=== PATIENT | male | born 1980 | race Two or more races ===

== ENCOUNTER → 2020-03-03 | Outpatient (CLI) | payer BC ==
[2015-09-29 17:30] VITALS: BP 137/75
[2020-03-03 14:51] LABS: BASO # 0.1 x10^3/uL (0.0-0.2); BASO % 1 % (0-3); EOS # 0.1 x10^3/uL (0.0-0.7); EOS % 1 % (0-3); HEMATOCRIT 41.1 % (39.0-53.0); HEMOGLOBIN 14.5 g/dL (13.0-17.5); LYMPH % 10 % (24-48); MEAN CORPUSCULAR HEMOGLOBIN 29 pg (25-35); MEAN CORPUSCULAR HGB CONC 35 g/dL (31-37); MEAN CORPUSCULAR VOLUME 83 fL (79-100); MONO # 1.3 x10^3/uL (0.0-1.1); MONO % 12 % (0-9); NEUT # 7.6 x10^3/uL (1.8-7.7); NEUT % 75 % (31-73); PLATELET COUNT 188 x10^3/uL (140-400); RED BLOOD COUNT 4.96 x10^6/uL (4.30-5.70); RED CELL DISTRIBUTION WIDTH 12.9 % (11.5-14.5); WHITE BLOOD COUNT 10.1 x10^3/uL (4.0-11.0)
[2020-03-03 15:20] LABS: ALBUMIN 3.3 g/dL (3.4-5.0); ALBUMIN/GLOBULIN RATIO 0.7 (1.0-1.7); C-REACTIVE PROTEIN 212.8 mg/L (0-3.3); CALCIUM 9.3 mg/dL (8.5-10.1); GFR 84.1; POTASSIUM 3.9 mmol/L (3.5-5.1); TOTAL BILIRUBIN 0.9 mg/dL (0.2-1.0); TOTAL PROTEIN 8.3 g/dL (6.4-8.2)
--- NOTE | 2020-03-03 16:42 | RAD ---
Chest radiograph 03/03/2020 2:52 PM INDICATION: Covid 19, cough fever and chill COMPARISON: None available TECHNIQUE: Frontal and lateral views of the chest are provided. FINDINGS: The cardiomediastinal silhouette is within normal limits. There are no pleural effusions. There is no pulmonary vascular congestion. There is no pneumothorax. Linear opacities noted in the right midlung and at the left lung base may represent interstitial pneumonitis versus subsegmental atelectasis or scarring. No significant osseous abnormality is identified. IMPRESSION: Linear opacities noted in the right midlung and at the left lung base may represent interstitial pneumonitis versus subsegmental atelectasis or scarring. Electronically signed by: Riya Sinclair MD (03/03/2020 4:39 PM) ANABEL
== END | disposition home or self-care (01) ==
LOC: LAB 14:07
PROVIDERS: ATTEND Physician Assistant Medical
DX: R50.9 Fever, unspecified (principal)
CPT/HCPCS: 36415; 71046; 80053; 85025; 86140

== ENCOUNTER → 2021-03-01 | Outpatient (CLI) | payer BC ==
[2015-09-29 17:30] VITALS: BP 137/75
--- NOTE | 2021-03-02 09:58 | KCIC ---
XR KNEE 3 VIEWS_RT History: Right posterior knee pain/grinding. Meniscus repair 10 years ago. Comparison: 08/14/2009 Technique: 3 standing views of the right knee. Findings: Osseous mineralization is normal. No fracture or dislocaton. Tricompartmental degenerative changes gr eatest at the patellofemoral compartment with osteophyte formation and joint space narrowing. Large p osterior tibiofemoral compartment osteochondral body measuring 1.6 x 1.3 x 1.3 cm. Trace suprapatella r effusion. Impression: 1. Degenerative changes of the right knee greatest at the patellofemoral compartment. 2. Large posterior tibiofemoral compartment osteochondral body measuring 1.6 cm diameter. Electronically signed by: Ajay Rosado MD (03/02/2021 9:56 AM) [id number]
== END ==
LOC: KCIC 15:06
PROVIDERS: ATTEND Physician Assistant Medical
DX: M17.11 Unilateral primary osteoarthritis, right knee (principal); M25.761 Osteophyte, right knee; M25.861 Other specified joint disorders, right knee; M25.561 Pain in right knee
CPT/HCPCS: 73562